=== PATIENT | female | born 1990 | race Caucasian/White ===

== ENCOUNTER 2016-11-05 13:20 | Inpatient (IN) ==
--- NOTE | 2016-11-05 14:54 | OB/GYN History & Physical ---
Date of Encounter: 11/05/16 Time of Encounter: 14:49 Assessment and Plan (1) 38 weeks gestation of Current visit: Yes Status: Acute labor evaluation external monitoring recheck for cervical progression History of Present Illness Chief complaint: labor eval HPI: Ms. Toussaint is a 26 year old female at 38 weeks and 4 days here today for a labor evaluation. She started to feel contractions this morning at 11 AM. The contractions have increased in intensity and frequency throughout the day. She denies vaginal bleeding or leaking fluid, headache, blurry vision, dizziness, dysuria, nausea. Labs: Group B strep negative. Rubella equivocal. Hepatitis B, HIV, syphilis, chlamydia, gonorrhea negative. Varicella immune. Past Med Surg Social Fam HX - Past Medical History Medical history: no medical history Psychiatric history: no psych history - Past Surgical History Surgical History: other - Social History Smoking Status: Never smoker Smokeless Tobacco Status: No Alcohol use: none Drug use: none - Family History Mother Age: 45 Living Status: Still Living Hx Family Cardiac Disorders: No Hx Family Respiratory Disorders: No Hx Family Cancer: No Hx Family GI Disorders: No Hx Family Genitourinary Disorders: No Hx Family Endocrine Disorder: No Hx Family Musculoskeletal Disorders: No Hx Family Neuromuscular Disorders: No Hx Family Neurologic Disorders: No Hx Family HEENT Disorders: No Hx Family Autoimmune Disorders: No Hx Family Reproductive Disorders: No Hx Family Psychosocial Disorders: No Hx Family Medical Disorders: No Obstetrical History - Pregnancies : 2 Livin Review of System OB - Constitutional Constitutional ROS IM: as per HPI Exam - Constitutional Constitutional: well developed, well nourished, no acute distress, average body habitus - HEENT HEENT: Normocephaly, Mucus Membranes Moist - Neck Neck exam: supple - Lungs Respiratory exam: CTAB - Cardiovascular Cardiovascular exam: RRR, +S1, +S2 - Abdomen Abdomen: Present: bowel sounds normal, gravid, non tender - Extremities Extremities exam: normal inspection, warm Results All other labs normal. - VTE Reasons for not Prescribing Prophylaxis: Treatment not Indicated - Low risk for VTE
[2016-11-05] MEDS ORDERED: Famotidine 20 MG/2 ML VIAL IVP PRN (16:41)
[2016-11-05] MEDS ORDERED: Ondansetron 4 MG/2 ML VIAL IVP PRN (16:41)
[2016-11-05] MEDS ORDERED: Naloxone 0.4 MG/ML INJ IVP PRN (16:41)
[2016-11-05] MEDS ORDERED: Ringers Solution, Lactated 1,000 ML IVC SCH (16:45)
[2016-11-05 16:49] LABS: Basophils # 0.1 K/mcL (0.0-0.2); Basophils % 0.4 %; Eosinophils # 0.1 K/mcL (0.0-0.6); Eosinophils % 0.4 %; Hematocrit 31.8 % (35.3-44.9); Hemoglobin 9.8 g/dL (11.5-15.4); Immature Granulocytes % 1.1 % (0-4); Lymphocytes # 2.8 K/mcL (0.6-4.6); Lymphocytes % 19.8 %; Mean Corpuscular HGB Conc 30.8 g/dL (31.6-35.5); Mean Corpuscular Hemoglobin 25.1 pg (28.0-33.3); Mean Corpuscular Volume 81.3 fL (83.0-100.0); Mean Platelet Volume 12.7 fL (9.4-12.4); Monocytes # 1.1 K/mcL (0.0-1.3); Monocytes % 7.6 %; Neutrophils # 10.1 K/mcL (1.6-8.9); Platelet Count 229 K/mcL (140-400); Red Blood Count 3.91 M/mcL (3.82-4.97); Red Cell Distribution Width 15.5 % (11.5-14.5); Segmented Neutrophils % 70.7 %
[2016-11-05] MEDS ORDERED: Oxytocin 20 units/ LR 1000 mL 20 UNIT/1,000 ML BAG IVC ONE ×2 (16:57→20:15)
--- NOTE | 2016-11-05 17:18 | OB Labor Progress Note ---
Date of Encounter: 11/05/16 Time of Encounter: 17:16 Labor Progress Note - Subjective Subjective: Patient reports SROM. Patient denies need for epidural or pain medication at this time. Discussed POC with patient. Patient denies any questions or concerns. - Cervix Cervix: 7/100/0 - Heart Tones Heart Tones: 125 bpm moderate variability +15x15 accels no decels noted. CAt. 1 tracing. - [place]: 1.5-2.5 min apart - Interventions Interventions: SVE - Plan Plan: Labor management.
[2016-11-05] MEDS ORDERED: Lidocaine 1% 20 ML MDV ONE (17:54)
--- NOTE | 2016-11-05 18:15 | OB/GYN Procedure Note ---
Delivery - Delivery Date: 11/05/16 Provider: Mayra Barnhart Intrapartum events: none Delivery induction: none Delivery monitor: external FHT, external uterine Anesthesia: local (for repair only) - Infant (s) Infant A Delivery Date: 11/05/16 Infant Delivery Time: 17:52 Presentation: vertex Position: MALIA Route of delivery: Gender: Female Viability: Viable Pounds: 6 Ounces: 8 Weight Gram: 2950 kg at 1 minute: 8 at 5 mins: 9 Shoulder Dystocia: not encountered Specimens collected: cord blood Placenta: spontaneous Cord: 3 umbilical vessels - Repair Episiotomy: none Laceration Description: Labial (right labial repaired with 3-0 vicryl.) - Complications Delivery complications: none Delivery comments: Called to delivery patient feels like she needed to push. Patient began pushing with contractions. Patient was prepped for delivery. A Viable female infant was delivered spontaneously no nuchal, no shoulder dystocia. Terminal meconium was noted. A small right labial abrasion was repaired with 3-0 vicryl. 1% lidocaine was used prior to repair for anesthesia. Placenta delivered spontaneously and intact. Pericare was provided, ice pack to perineum. Both mother and stable in LDR. - Disposition Mom disposition: stable in LDR [place] disposition: stable in LDR
[2016-11-05] MEDS ORDERED: Acetaminophen 325 MG TABLET PO PRN (20:19)
[2016-11-05] MEDS ORDERED: Rho Immune Globulin 1,500 UNIT SYRINGE IM PRN (20:19)
[2016-11-05] MEDS ORDERED: Oxytocin 20 units/ LR 1000 mL 20 UNIT/1,000 ML BAG IVC SCH (20:19)
[2016-11-05] MEDS ORDERED: Benzocaine/Menthol 56 GM AEROSOL SPRAY TP PRN (20:19)
[2016-11-05] MEDS ORDERED: Ibuprofen 600 MG TABLET PO PRN (20:19)
[2016-11-05] MEDS ORDERED: Measles/Mumps/Rubella Vacc 0.5 ML VIAL SQ PRN (20:19)
[2016-11-05] MEDS ORDERED: *HR* HYDROcodone/Acet 5/325 mg TABLET PO PRN (20:19)
[2016-11-06] MEDS ORDERED: Prenatal Vit/FA 1 EACH TABLET PO SCH (09:00)
--- NOTE | 2016-11-06 09:43 | Discharge Summary ---
Date of Encounter: 11/06/16 Time of Encounter: 09:40 - Discharge Diagnosis (1) Vaginal delivery Priority: Primary Status: Acute Comments: patient states feels well. No complaints, states pain well managed on po pain medication. desires discharge this evening. - Discharge Medications Prescriptions: Breast Pump [BREAST PUMP] 1 each .ROUTE AD #1 each Docusate [Colace] 100 mg PO BID #60 capsule Ferrous Sulfate 325 mg PO DAILY #60 tablet Home Medications: Ferrous Sulfate [Iron] 1 tab PO DAILY 11/05/16 [History] Vit/Iron Fumarate/FA [ Tablet] 1 tab PO DAILY 11/05/16 [History ] Acetaminophen [Tylenol] 650 mg PO Q6HR PRN #0 tablet 11/06/16 [Rx] Benzocaine/Menthol Seiling [Dermoplast Seiling] 1 appl TP QID PRN #0 aerosol [Rx] Breast Pump [BREAST PUMP] 1 each .ROUTE AD #1 each 11/06/16 [Rx] Docusate [Colace] 100 mg PO BID #60 capsule 11/06/16 [Rx] Ferrous Sulfate 325 mg PO DAILY #60 tablet 11/06/16 [Rx] Ibuprofen [Motrin] 600 mg PO Q6HR PRN #60 tablet 11/06/16 [Rx] Allergies/Adverse Reactions: Allergies No Known Allergies Allergy (Verified 11/05/16 16:48) Data Procedures and tests throughout hospitalization: Laboratory Tests 11/05/16 11/05/16 16:42 18:30 WBC 14.3 H RBC 3.91 Hgb 9.8 L Hct 31.8 L MCV 81.3 L MCH 25.1 L MCHC 30.8 L RDW 15.5 H Plt Count 229 MPV 12.7 H Immature Gran % 1.1 Seg Neutrophils % 70.7 Lymphocytes % 19.8 Monocytes % 7.6 Eosinophils % 0.4 Basophils % 0.4 Neutrophils # 10.1 H Lymphocytes # 2.8 Monocytes # 1.1 Eosinophils # 0.1 Basophils # 0.1 Screen NEGATIVE Baby's Blood Type A RH POSITIVE Mother's Blood Type O RH NEGATIVE Rhogam Indicated YES Rhogam Req for Mother 1 Labs on day of discharge: Labs from last 24 hours 11/05/16 11/05/16 18:30 16:42 WBC 14.3 H RBC 3.91 Hgb 9.8 L Hct 31.8 L MCV 81.3 L MCH 25.1 L MCHC 30.8 L RDW 15.5 H Plt Count 229 MPV 12.7 H Immature Gran % 1.1 Seg Neutrophils % 70.7 Lymphocytes % 19.8 Monocytes % 7.6 Eosinophils % 0.4 Basophils % 0.4 Neutrophils # 10.1 H Lymphocytes # 2.8 Monocytes # 1.1 Eosinophils # 0.1 Basophils # 0.1 Screen NEGATIVE Baby's Blood Type A RH POSITIVE Mother's Blood Type O RH NEGATIVE Rhogam Indicated YES Rhogam Req for Mother 1 Date of admission: 11/05/16 13:20 Primary care physician: PCP NO Consults: 11/05/16 20:19 Consult to [facility] [CONS] Routine Comment: Vaginal delivery, consult needed Discharging clinician: Tona Plascencia Anticipated date of discharge: 11/06/16 - Patient Status Disposition: Home, Self-Care Condition: Good Functional capacity at discharge: independent ambulation Overall status at discharge: patient is back to baseline - Discharge Instructions Follow Up With: NO,PCP [Primary Care Provider] - Mayra Barnhart, CNM [Non-Partnered Physician] - - Diet and Activity Activity: resume usual activities as tolerated Diet: regular diet Hospital Course Reason for admission: active labor Delivery: Episiotomy: none Laceration: other (labial) complications: none Discharge diagnosis: IUP at term delivered [place] baby: female Hospital course: Delivery - Delivery Date: 11/05/16 Provider: Mayra Barnhart Intrapartum events: none Delivery induction: none Delivery monitor: external FHT, external uterine Anesthesia: local (for repair only) - (s) A Infant Delivery Date: 11/05/16 Delivery Time: 17:52 Presentation: vertex Position: MALIA Route of delivery: Gender: Female Viability: Viable Pounds: 6 Ounces: 8 Weight Gram: 2950 kg at 1 minute: 8 at 5 mins: 9 Shoulder Dystocia: not encountered Specimens collected: cord blood Placenta: spontaneous Cord: 3 umbilical vessels - Repair Episiotomy: none Laceration Description: Labial (right labial repaired with 3-0 vicryl.) - Complications Delivery complications: none Delivery comments: Called to delivery patient feels like she needed to push. Patient began pushing with contractions. Patient was prepped for delivery. A Viable female infant was delivered spontaneously no nuchal, no shoulder dystocia. Terminal meconium was noted. A small right labial abrasion was repaired with 3-0 vicryl. 1% lidocaine was used prior to repair for anesthesia. Placenta delivered spontaneously and intact. Pericare was provided, ice pack to perineum. Both mother and infant stable in LDR. - Disposition Mom disposition: stable in postpartm Time Attestation: Total time spent providing and/or coordinating discharge services: Time Spent: Less than 30 minutes Exam - Constitutional Vitals: Temp Pulse Resp BP Pulse Ox 98.2 F 70 16 105/68 98 11/06/16 07:40 11/06/16 08:45 11/06/16 08:45 11/06/16 07:40 11/06/16 04:28 General appearance IM: A&O X 3, pleasant, no acute distress - Respiratory Respiratory exam: Present: CTAB - Cardiovascular Cardiovascular exam IM: Present: RRR, +S1, +S2 - GI/Abdominal GI/Abdominal exam IM: normal bowel sounds, soft - Uterine Tone: Firm Uterus Position: At Umbilicus, Midline - Extremities Exam Extremities exam IM: Present: normal capillary refill - Neurological Exam Neurological exam: normal gait, oriented X3 - Psychiatric Additional comments: reports good mood
[2016-11-06 15:32] VITALS: BP 113/70
== END 2016-11-06 18:23 | disposition home or self-care (01) | DRG 560 ==
LOC: 1NENULAB → OBSVTOIN 13:20 → 1NENUOBS 20:29